=== PATIENT | female | born 1970 | race Caucasian/White ===

== ENCOUNTER 2021-08-12 16:31 | Emergency (ER) | payer OTHER, SELFPAY ==
[2021-08-12 16:43] VITALS: BP 156/84; PULSE 109; RESP 18; TEMP 36.4; O2SAT 100
--- NOTE | 2021-08-12 17:13 | ED.SKABFB ---
HPI - Skin/Abscess/Foreign Bdy General Chief complaint: Skin/Abscess/Foreign Body Stated complaint: Rash Time Seen by Provider: 08/12/21 16:53 Source: patient and RN notes reviewed Mode of arrival: ambulatory Limitations: no limitations History of Present Illness HPI narrative: Patient presents today complaining of rash to bilateral lower legs that intermittently itches. Symptoms have been present for 3 days. Prior to onset of symptoms patient had used a new tanning oil that she noted was bad that she believed to have cleaned off fully from her legs prior to going out in the sun. Denies pain. She has been using Claritin and hydrocortisone with mild relief. MD complaint: rash Related Data Home Medications Medication Instructions Recorded Confirmed cholecalciferol (vitamin D3) 50 mcg PO DAILY 08/12/21 08/12/21 pediatric multivitamin 1 tablet PO DAILY 08/12/21 08/12/21 [Flintstones Multivitamin] Allergies Allergy/AdvReac Type Severity Reaction Status Date / Time Sulfa (Sulfonamide Allergy Mild Other Verified 08/12/21 16:54 Antibiotics) Review of Systems Review of Systems: CONSTITUTIONAL: Denies body aches, fever, chills, or sweats. EYES: Denies visual changes, redness, or discharge. ENT: Denies rhinorrhea, congestion, sore throat, or otalgia. CARDIOVASCULAR: Denies chest pain, palpitations, or edema. RESPIRATORY: Denies cough or dyspnea. GASTROINTESTINAL: Denies abdominal pain, nausea, vomiting, or diarrhea. GENITOURINARY: Denies dysuria or hematuria. SKIN: Denies wounds.+ Rash to bilateral lower legs MUSCULOSKELETAL: Denies back pain, joint pain, or myalgia. NEUROLOGIC: Denies headache, numbness, tingling, or weakness. PSYCH: Denies depression or anxiety. [facility] Past Medical History Medical History (Updated 08/12/21 @ 17:48 by Nikki Soto, SWAPNIL, BC) Delivery with history of Surgical History Surgical History (Updated 08/12/21 @ 17:48 by Nikki Soto, SWAPNIL, BC) Hx of tonsillectomy Comments At time of signature, I have reviewed and agree with nursing past medical, surgical, social and family history unless otherwise noted. Please see nursing chart for further information. There is no relevant family history pertinent to the presenting complaint Exam Narrative: GENERAL: Well-appearing, well-nourished, and in no acute distress. HEAD: Normocephalic, atraumatic. EYES: EOMI. No redness or drainage. Conjunctivae normal. ENT: Mucous membranes pink and moist. NECK: Normal AROM. CHEST: No respiratory distress. EXTREMITIES: Normal range of motion. No edema. SKIN: Warm, dry. Normal skin turgor. Patient has red, nonblanchable petechial rash from mid lower leg that extends to the ankle bilaterally. Rash is very well delineated and cut off at her sock line at the ankles. No edema. Distal sensation intact. Capillary refill normal. Pedal pulses normal. NEURO: No focal deficits. Alert and oriented x3. Gait steady. PSYCH: Anxious. Course Course Emergency Course: It is likely that patient's petechial rash is due to sun exposure after exposure to tanning oil. Anticipatory guidance given for resolution and monitoring for signs of infection. Level of Care: Express Care Visit Vital Signs Vital signs: Vital Signs Temperature 97.6 F 08/12/21 16:43 Pulse Rate 109 H 08/12/21 16:43 Respiratory Rate 18 08/12/21 16:43 Blood Pressure 156/84 H 08/12/21 16:43 Pulse Oximetry 100 08/12/21 16:43 Temperature 97.6 F 08/12/21 16:43 Pulse Rate 109 H 08/12/21 16:43 Respiratory Rate 18 08/12/21 16:43 Blood Pressure 156/84 H 08/12/21 16:43 Pulse Oximetry 100 08/12/21 16:43 Reviewed. Pt has been instructed to follow up with her PCP regarding her elevated blood pressure today. MDM - Skin/Abscess/Foreign Bdy Differential Diagnosis Differential diagnosis: Likely abscess of skin or subcutaneous tissue, viral exanthem, urticaria, cellulitis, eczema, impetigo, contact de
== END 2021-08-12 17:20 | disposition home or self-care (01) ==
PROVIDERS: Emergency Provider Nurse Practitioner
DX: R23.3 Spontaneous ecchymoses (principal)
CPT/HCPCS: 99211; G0463

== ENCOUNTER 2021-10-22 14:38 | Outpatient (CLI) | payer OTHER, SELFPAY ==
--- NOTE | ~2021-10-22 | MM_ITS ---
EXAMINATION: MM screening [facility] BI w aaron HISTORY: Screening mammogram TECHNIQUE: Craniocaudal and mediolateral oblique 3-D tomosynthesis images were obtained and synthetic 2-D images were generated. CAD analysis was submitted and interpreted. COMPARISON: 03/19/2017, 05/27/2009 BREAST PARENCHYMAL COMPOSITION: There are scattered areas of fibroglandular density. FINDINGS: There is no suspicious mass, calcification, or architectural distortion to suggest malignan cy in either breast. There has been no suspicious interval change. IMPRESSION: 1. No mammographic evidence of malignancy. 2. Recommend routine screening mammography in one year. BI-RADS Category 1: Negative Reviewed, dictated and finalized at location A.
== END 2021-10-22 14:39 | disposition home or self-care (01) ==
LOC: ANHIMG 14:42
DX: Z12.31 Encounter for screening mammogram for malignant neoplasm of breast (principal)
CPT/HCPCS: 77063; 77067